=== PATIENT | male | born 1985 | race Caucasian/White ===

== ENCOUNTER 2016-08-06 12:32 | Outpatient (CLI) | payer OTHER ==
--- NOTE | 2016-08-06 14:44 | DIAGNOSTIC IMAGING REPORT ---
PROCEDURE: MR UPPER EXTREMITY W/O CONT-RT INDICATION: RT SHOULDER ROTATOR CUFF SYNDROME TECHNIQUE: PD and FAT-SAT PD, axial, and coronal-oblique images. PD and STIR sagittal-oblique images. COMPARISON: None. FINDINGS: Type 2 acromion resulting in mild impingement. Normal AC joint. Partial thickness tear (11 mm transverse) of the supraspinatus tendon distally on the articular side. Small subdeltoid and subacromial effusion. Normal labrum. Normal glenohumeral ligaments. Normal bicipital tendon. No suspicious osseous lesions. IMPRESSION: 1. And type 2 acromion resulting in mild impingement 2. Partial thickness tear of the distal supraspinatus tendon, articular side 3. Small subdeltoid and subacromial effusion suggestive of bursitis
== END 2016-08-06 23:00 | disposition home or self-care (01) ==
LOC: MRI SRH 12:32
DX: M75.41 Impingement syndrome of right shoulder (principal); M75.101 Unspecified rotator cuff tear or rupture of right shoulder, not specified as traumatic; S46.811A Strain of other muscles, fascia and tendons at shoulder and upper arm level, right arm, initial encounter; M25.411 Effusion, right shoulder